=== PATIENT | male | born 1950 | race Caucasian/White ===

== ENCOUNTER → 2021-04-14 | Outpatient (CLI) | payer OTHER ==
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
== END | disposition home or self-care (01) ==
LOC: RADMRIMAIN 09:38
PROVIDERS: ATTEND Physician Assistant Medical
DX: R93.2 Abnormal findings on diagnostic imaging of liver and biliary tract (principal)
CPT/HCPCS: 74019

== ENCOUNTER → 2021-05-02 | Outpatient (CLI) | payer OTHER ==
--- NOTE | 2021-05-02 15:44 | CT ---
EXAMINATION TYPE: CT abdomen w con DATE OF EXAM: 05/02/2021 COMPARISON: None HISTORY: Upper Abdominal pain. CT DLP: 1251.7 mGycm CONTRAST: CT scan of the abdomen is performed with Oral Contrast and with IV Contrast, patient injected with 10 0 mL of Isovue 300. FINDINGS: LUNG BASES-: No visible nodule. No infiltrate. LIVER/GB: There is infiltrative type mass throughout most of the right hepatic lobe extending into th e medial segment of the left hepatic lobe. Primary versus secondary neoplasm is suspected. The gallbl adder is free of bowel wall thickening or cholelithiasis. Biliary tree does not appear to be dilated. PANCREAS: No inflammation. No distinct mass. SPLEEN: No splenic enlargement. No lesion seen. ADRENALS: Nodular thickening right adrenal gland measures 1.5 cm and could reflect adenoma. KIDNEYS/BLADDER: No hydronephrosis. No nephrolithiasis. No distinct renal mass. Urinary bladder g rossly unremarkable. BOWEL: The visualized bowel loops appear to be of normal caliber. No obvious inflammatory change. LYMPH NODES: No greater than 1cm abdominal or pelvic lymph nodes are appreciated. AORTA: No significant abnormality. OSSEOUS STRUCTURES: 50% compression fracture of L1 which appears to be chronic in nature. Grade 1 ant erolisthesis L4 and L5. Vacuum disc noted at multiple levels. OTHER: No significant additional abnormality is seen. IMPRESSION: 1. Infiltrative type mass throughout the liver as discussed above. Differential diagnostic possibilit ies include hepatocellular carcinoma versus metastatic disease. 2. Nodular thickening right adrenal gland.
== END | disposition home or self-care (01) ==
LOC: RADCTMAIN 14:12
DX: K76.89 Other specified diseases of liver (principal); E27.8 Other specified disorders of adrenal gland
CPT/HCPCS: 82565; 84520; 74160; 36415; Q9967

== ENCOUNTER → 2024-03-29 | Outpatient (CLI) | payer OTHER ==
--- NOTE | 2024-03-30 13:49 | CA ---
Transthoracic Echo Report Name: Ed Rausch Age: 73 Gender: M : 1950 Exam Date: 03/29/2024 16:01 Exam Location: [facility] Ht (in): 72 Wt (lb): 211 Ordering Physician: Lane Vallejo MD Attending/Referring Phys: Pathology Laboratory Aides Teacher Gisel Tran RDCS Procedure CPT: Indications: I50.22 CHRONIC SYSTOLIC (CONGESTIVE) HEART FAILURE Cardiac Hx: Technical Quality: Fair Contrast 1: Total Dose (mL): Contrast 2: Total Dose (mL): MEASUREMENTS (Male / Female) Normal Values 2D ECHO LV Diastolic Diameter PLAX 4.6 cm 4.2 - 5.9 / 3.9 - 5.3 cm LV Systolic Diameter PLAX 3.8 cm IVS Diastolic Thickness 1.9 cm 0.6 - 1.0 / 0.6 - 0.9 cm LVPW Diastolic Thickness 1.8 cm 0.6 - 1.0 / 0.6 - 0.9 cm LV Relative Wall Thickness 0.8 RV Internal Dim ED PLAX 5.0 cm M-MODE Aortic Root Diameter MM 3.0 cm LA Systolic Diameter MM 5.7 cm LA Ao Ratio MM 1.9 AV Cusp Separation MM 1.9 cm DOPPLER AV Peak Velocity 135.0 cm/s AV Peak Gradient 7.3 mmHg AV Mean Velocity 104.5 cm/s AV Mean Gradient 4.8 mmHg AV Velocity Time Integral 30.6 cm AI Peak Velocity 400.6 cm/s AI Peak Gradient 64.2 mmHg AI Pressure Half Time 742.5 ms LVOT Peak Velocity 102.6 cm/s LVOT Peak Gradient 4.2 mmHg LVOT Velocity Time Integral 21.0 cm MV Area PHT 2.7 cm??? Mitral E Point Velocity 60.3 cm/s Mitral A Point Velocity 118.5 cm/s Mitral E to A Ratio 0.5 MV Deceleration Time 283.1 ms MV E' Velocity 2.6 cm/s Mitral E to MV E' Ratio 23.6 TR Peak Velocity 470.3 cm/s TR Peak Gradient 88.5 mmHg Right Ventricular Systolic Press 43.7 mmHg FINDINGS Left Ventricle Severely increased left ventricular wall thickness. Left ventricular cavity size normal. Normal left ventricular systolic function with no obvious regional wall motion abnormalities. Left ventricular ejection fraction is estimated at 55 %. Grade 2 diastolic dysfunction. Right Ventricle Right ventricular dilatation. Mild pulmonary hypertension. Right Atrium Normal right atrial size. Catheter/pacemaker wire in the right atrial cavity. Left Atrium Mildly increased left atrial area. Mitral Valve Structurally normal mitral valve. Mitral valve thickened. Mild mitral annular calcification. Moderate mitral regurgitation. Aortic Valve Trileaflet aortic valve. No aortic valve stenosis. Aortic valve sclerosis. Mild aortic regurgitation. Tricuspid Valve Structurally normal tricuspid valve. Moderate tricuspid regurgitation. Pulmonic Valve Structurally normal pulmonic valve. Trace pulmonic regurgitation. Pericardium No pericardial effusion. Aorta Normal size aortic root and proximal ascending aorta. CONCLUSIONS Low normal LV systolic function with EF at 50% Moderate mitral regurgitation Previewed by: Dr. Sawyer Kiran MD (Electronically Signed) Final Date: 30 March 2024 13:48
== END | disposition home or self-care (01) ==
LOC: RADECHMAIN 15:52
PROVIDERS: ATTEND Internal Medicine Critical Care Medicine
DX: I50.22 Chronic systolic (congestive) heart failure (principal); I34.0 Nonrheumatic mitral (valve) insufficiency; I37.1 Nonrheumatic pulmonary valve insufficiency; I07.1 Rheumatic tricuspid insufficiency
CPT/HCPCS: 93306

== ENCOUNTER 2024-03-30 19:34 | Outpatient (CLI) | payer OTHER ==
--- NOTE | 2024-04-06 23:25 | P.PCN ---
Date of Procedure: 03/30/24 Operative Findings: Polysomnography/CPAP titration report Date of service is 03/30/2024 Pertinent history This is a 71-year-old male patient unknown history of a complex obstructive and central sleep apnea. The patient continues to have snoring, chronic hypersomnia sleepiness. The patient's original polysomnography was done back in 2021 and at that time the patient was found to have an AHI of 45 consistent with severe disease. The patient has history of CHF with impaired LV function, chronic A-fi b, history of severe bradycardia and the patient has a pacemaker in place. In addition to that, the patient has hypertension hyperlipidemia and previous history of PTSD. The patient saw me in consultation in follow-up in my office regarding symptomatic sleep apnea and the patient was advised to proceed with a CPAP titration. Pertinent physical findings Weight is 214 pounds with a height of 6 feet and a body mass index of 29 Technical description The patient was studied using a standard complex polysomnography protocol that included recording of the Lead II EKG, Central, occipital and frontal EEG, right and left outer canthus EOG, submental EMG, right and left anterior tibialis EMG, respiratory airflow by thermocouple and or pressure/flow transducer, respiratory efforts by abdominal and thoracic PVDF belts, oxygen saturation by cable oximetry. Position by observation synchronized the PSG. Equipment used: [employer]. Stepwise CPAP titration was done to eliminate obstructive and central sleep apneic events Sleep characteristics The total recording duration was 436 minutes. The total sleep time was 210 minutes. The overall sleep efficiency was 48.2%. The latency to sleep onset is 122.5 minutes. The wake after sleep onset time was 107.5 minutes. The sleep architecture was characterized by 0.2% REM sleep, 11.2% stage I sleep, 90.7% stage II sleep and 0% stage III sleep. The total arousal index was 19.7 Results CPAP titration was initially started at a pressure of 8 cm of water and the pressure was gradually increased by increments of 1 cm to reach a maximum CPAP pressure of 15 cm of water. Noted there was considerable improvement and elimination of the obstructive respiratory events at the various CPAP pressures utilized. Noted the titration was an essentially during non-REM sleep. The patient did not encounter any REM sleep. Also, the titration was done at least body positions including supine body position. Oxygen saturations were eliminated and there was no significant desaturation encountered throughout the titration. This is essentially considered to be a successful titration. No emergence of any central events noted. Oxygenation analysis The patient had no significant oxygen desaturations. The baseline pulse ox while awake was 95%. Lowest pulse ox was 90% and the patient spent only 10 minutes of the sleep time below pulse ox of 90%. Sleep continuity summary There was a total of 69 arousals with an arousal index of 19.7. Respiratory arousal index was 1.7 Periodic limb movement activity Excessive periodic limb movements were noted a total of 419 with an index of 119.7. There was only 1. Regular movement activity with arousals with an index of 0.3 Cardiac summary The average heart rate was 60 minimum heart rate of 57 and a maximum heart of 64 Assessment History of severe sleep apnea, a combination of obstructive and central, predominantly obstructive based on a previous sleep study which was in 2021. The patient is AHI by exam was 45. Since then, the patient has lost approximate 20 pounds. The patient remains symptomatic over the past 2 years and the patient is coming in for for a CPAP titration. The patient underwent a successful CPAP titration. History of snoring Chronic hypersomnia Excessive periodic limb movements, not causing any arousals History of atrial fibrillation History of hypertension Hyperlipidemia History of pacemaker insertion Moderate mitral regurgitation with a low normal EF of around 60%. Plan Will offer the patient an APAP machine. The patient will be set at a minimum p ressure of 8 and a maximum pressure of 15 and the patient is going to be offered an AirFit F20 medium size fullface mask. The patient was seen back in the short-term follow-up in the office to assess clinical response and compliancy we will make further recommendations accordingly. Encouraged further weight loss. Repeat echocardiogram showed a preserved LV function with moderate degree of mitral regurgitation. Will follow.
== END 2024-03-31 06:05 | disposition home or self-care (01) ==
LOC: 3 N SLEEP 19:34
PROVIDERS: ATTEND Internal Medicine Critical Care Medicine
CPT/HCPCS: 95811